=== PATIENT | male | born 1995 | race African-American/Black ===

== ENCOUNTER 2019-04-08 19:38 | Emergency (ER) | payer SELFPAY ==
--- NOTE | 2019-04-08 19:47 | PDOC ---
Rapid Medical Evaluation Chief Complaint: Pain, Acute Time Seen by Provider: 04/08/19 19:44 Medical Evaluation: Allergies Allergy/AdvReac Type Severity Reaction Status Date / Time No Known Allergies Allergy Verified 06/25/13 12:55 04/08/19 19:44 c/o left knee pain c/o knee popped out while playing basket ball 6 days ago now with pain to the Left knee. No pmhx PE: patient alert ox3. able to extent leg. + weight bearing A: left knee pain P; xray patient to the ER for further management of care/ Discharge Disposition - Diagnosis Left knee pain Qualifiers: Chronicity: acute Qualified Code(s): M25.562 - Pain in left knee - Referrals - Patient Instructions - Post Discharge Activity
[2019-04-08 19:58] VITALS: BP 125/80; PULSE 87; TEMP 98.2; BMI 33.2
--- NOTE | 2019-04-08 20:10 | PDOC ---
History of Present Illness - General Chief Complaint: Pain, Acute Stated Complaint: LT KNEE PAIN Time Seen by Provider: 04/08/19 19:44 History Source: Patient - History of Present Illness Initial Comments: 04/08/19 21:05 Chief complaint: Knee injury Patient 24-year-old male his left knee 6 days ago, felt it pop out and pop back in. Patient has been walking on the knee but he has pain and swelling. GENERAL/CONSTITUTIONAL: No fever, weakness. dizziness HEAD, EYES, EARS, NOSE AND THROAT: No change in vision. No ear pain or discharge. No sore throat. CARDIOVASCULAR: No chest pain RESPIRATORY: No shortness of breath or cough GASTROINTESTINAL: No pain, nausea, vomiting, diarrhea or constipation GENITOURINARY: No dysuria MUSCULOSKELETAL: No neck or back pain, + left knee SKIN: No rash NEUROLOGIC: No headache, vertigo, loss of consciousness, or loss of sensation. GENERAL: The patient is awake, alert, and fully oriented, in no acute distress. HEAD: Normal with no signs of trauma. EYES: Pupils equal, round and reactive to light, sclera anicteric, conjunctiva clear. ENT: pharynx: no erythema, no exudate, uvula midline NECK: supple CHEST: clear, nontender, rr ABD: soft, nontender BACK: no tenderness or signs of injury EXTREMITIES: Left lower extremity with some swelling to the knee, some tenderness specially on the medial aspect, able to extend although not fully, no other injuries, neurovascular intact. No deformity. Rest of extremities, normal range of motion, no edema. NEUROLOGICAL: Normal speech, normal gait. SKIN: Warm, Dry Past History - Past Medical History Allergies/Adverse Reactions: Allergies Allergy/AdvReac Type Severity Reaction Status Date / Time No Known Allergies Allergy Verified 04/08/19 19:45 Home Medications: Ambulatory Orders No Home Medications 0 dose .ROUTE UTDICT 06/25/13 Asthma: Yes COPD: No - Immunization History Immunization Up to Date: Yes - Suicide/Smoking/Psychosocial Hx Smoking Status: No Smoking History: Never smoked Number of Cigarettes Smoked Daily: 0 Information on smoking cessation initiated: No Hx Alcohol Use: No Drug/Substance Use Hx: No Substance Use Type: None *Physical Exam - Vital Signs Last Vital Signs Temp Pulse Resp BP Pulse Ox 98.2 F 87 17 125/80 99 04/08/19 19:45 04/08/19 19:45 04/08/19 19:45 04/08/19 19:45 04/08/19 19:45 Medical Decision Making - Medical Decision Making 04/08/19 21:09 24-year-old male who injured left knee 6 days ago, found to have a patella fracture, likely has a quadriceps tear if not full, partial. Patient put a knee brace, put on crutches, nonweightbearing. Discussed with Dr. Bills. Patient will follow-up in their office Discussed issues, findings, results, applicable medications and treatments and follow-up. All these were understood and all questions were answered *DC/Admit/Observation/Transfer Diagnosis at time of Disposition: Patella fracture Qualifiers: Encounter type: initial encounter Fracture type: closed Fracture morphology: unspecified fracture morphology Fracture alignment: displaced Laterality: unspecified laterality Qualified Code(s): S82.009A - Unspecified fracture of unspecified patella, initial encounter for closed fracture - Discharge Dispostion Disposition: HOME Condition at time of disposition: Stable Decision to Admit order: No - Referrals Referrals: Martha Olivier MD [Primary Care Provider] - Dameon Costa MD [Staff Physician] - - Patient Instructions Additional Instructions: Elevate, wear splint Use the crutches, do not walk on your leg Call the orthopedist tomorrow - Post Discharge Activity
== END 2019-04-08 20:35 | disposition home or self-care (01) ==
LOC: JERFT 19:38
PROC: 2W3MX3Z Immobilization of Left Lower Extremity using Brace (ICD-10-PCS; principal; 2019-04-08)
DX: S82.092A Other fracture of left patella, initial encounter for closed fracture (principal); X50.1XXA Overexertion from prolonged static or awkward postures, initial encounter; Y93.67 Activity, basketball; Y92.310 Basketball court as the place of occurrence of the external cause; Y99.8 Other external cause status
CPT/HCPCS: 73562-TC-LT-FY; 99282-25

== ENCOUNTER 2019-05-20 06:07 | Day surgery (SDC) | payer OTHER ==
[2019-05-19 12:26] VITALS: BMI 31.8
[2019-05-20] MEDS ORDERED: oxyCODONE HCL 5 MG TABLET PO PRN (07:06)
[2019-05-20] MEDS ORDERED: ONDANSETRON 4 MG/2 ML VIAL IVPUSH PRN (07:06)
[2019-05-20] MEDS ORDERED: LACTATED RINGERS SOLUTION 1,000 ML IV SCH (07:15)
--- NOTE | 2019-05-20 07:25 | OP ---
Operative Note - Note: Operative Date: 05/20/19 Pre-Operative Diagnosis: Left MPFL tear and osteochondral fracture Operation: Osteochondral fracture repair and MPFL reconstruction Post-Operative Diagnosis: Same as Pre-op Surgeon: Cristhian Newton Rural Sociologist: Lupe Sorenson Anesthesia: General Operative Report Dictated: Yes
[2019-05-20] MEDS ORDERED: DEXAMETHASONE SOD PHOSPHATE/PF 10 MG/ML SDV ONE (08:39)
[2019-05-20] MEDS ORDERED: MIDAZOLAM HCL 2 MG/2 ML SINGLE DOSE VIAL ONE ×5 (08:40→12:17)
[2019-05-20] MEDS ORDERED: ROPIVACAINE HCL 0.5% 30ML VIAL ONE (08:40)
[2019-05-20] MEDS ORDERED: BUPIVACAINE HCL/PF 0.5% (5MG/ML) 10 ML VIAL ONE (08:58)
[2019-05-20] MEDS ORDERED: ROCURONIUM BROMIDE 50 MG/5 ML SYRINGE ONE (09:26)
[2019-05-20] MEDS ORDERED: PROPOFOL 20 ML ONE ×2 (09:26)
[2019-05-20] MEDS ORDERED: ceFAZolin SODIUM 1 GM VIAL ONE ×2 (09:36→13:21)
[2019-05-20] MEDS ORDERED: VANCOMYCIN 1,000 MG VIAL (RESTRICTED TO ID ONLY) ONE (09:49)
[2019-05-20] MEDS ORDERED: VANCOMYCIN 1,000 MG VIAL (RESTRICTED TO ID ONLY) IVPB ONE (11:30)
[2019-05-20] MEDS ORDERED: ACETAMINOPHEN 1000 MG/100 ML VIAL (NON FORMULARY) IVPB ONE (13:00)
[2019-05-20] MEDS ORDERED: ACETAMINOPHEN INJECTION 100 ML IVPB ONE (13:40)
--- NOTE | 2019-05-20 17:56 | OP ---
DATE OF OPERATION: 05/20/2019 PREOPERATIVE DIAGNOSIS: Left patellofemoral instability, loose body x2. POSTOPERATIVE DIAGNOSIS: Left patellofemoral instability, loose body x2. PROCEDURE: Left knee arthroscopy with excision of loose bodies x2, microfracture of the patella, and medial patellofemoral ligament reconstruction. IMPLANTS: [employer] Regenesorb 7 x 20 interference screw. ANESTHESIA: Spinal plus regional. POSTOPERATIVE CONDITION: Stable. COMPLICATIONS: None. INDICATION: This is a pleasant young gentleman who suffered an injury to his knee playing sports . He was found to have an episode of patellar instability along with 2 large osteochondral injuries. Given these findings, he was indicated for operative care. Treatment options including nonoperative care was reviewed which would involve persistent loose bodies and perhaps recurrent instability. Operative care recommended, given the loose bodies are present and potentially could be repaired. I reviewed surgical risks with him in detail including bleeding, infection, neurovascular injury, need for further surgery, postoperative pain and stiffness, failure of osteochondral fragments which were repaired to heal, development of posttraumatic arthrosis, persistent knee instability. We reviewed medical risks such as heart attack, stroke, DVT, PE, and . I reviewed the postoperative rehabilitation protocol. I addressed all the patient's and his mother's questions and concerns. He voiced understanding and elected to proceed. DESCRIPTION OF PROCEDURE: The patient was brought to the operating room after the administration of regional block in the preoperative holding area. He was then administered spinal anesthetic. He was then placed supine on the operating room table. Preoperative examination of the left knee demonstrated small effusion, full range of motion, no collateral or cruciate instability. There was 3 quadrant lateral patellar glide. The contralateral demonstrated 1-1/2 quadrant lateral glide. No medial instability to the patella noted. On flexion, he was noted to have a mild J sign which is symmetric on both sides. The patient was then prepped and draped in the usual sterile fashion. A preoperative dose of antibiotics is given and the usual timeout procedure was performed. Initially, fluoroscopy was performed. The portals were marked out on the skin. The lateral portal was established using an 11 blade. The arthroscope was passed into the joint. Examination of the patellofemoral joint demonstrated a significant area of cartilage loss in the inferomedial portion of the patella. There was fibroid cartilage filling in the area. The trochlea in this area appeared unremarkable. The arthroscope was then passed down into the femoral notch. ACL and PCL were visualized to be intact. Medial side of the joint was visualized, including the medial femoral condyle, again passing the knee from flexion to extension and back to ensure no chondral injuries here. None were seen. The arthroscope was now passed into the medial portion of the joint and meniscus was visualized and seemed to be intact. No tibial articular lesions were noted. The arthroscope was now passed into the lateral portion. The medial portal was established while examining the medial compartment under spinal needle localization. The lateral compartment was now examined. On the lateral aspect of the trochlea, there was a sheer injury to the lateral cartilage. However, this appeared gradual, and no focal defects are noted. The arthroscope was passed down into the lateral compartment and here, no additional injury was noted on the plateau or in the lateral meniscus. Passing the arthroscope into the lateral gutter demonstrated a very large disk body. This was left for now. The arthroscope was now passed just medial to the PCL into the posterior aspect of the knee. Here, the posterior loose body was visualized. After visualizing it, a posterior medial portal was established under spinal needle localization. A kristyn and spread technique was employed to avoid any injury to the soft tissues. After spreading down to the capsule, the clamp was passed into the joint and spread. The grasper was now passed in, and the fragment was manipulated. It was found to be only cartilaginous with no bony back. We therefore decided that it was not repairable. The shaver was passed in the joint, and the loose body was excised. The loose body size was approximately 1 x 1 cm. The large patellar lesion was felt to be the most likely donor site with the fragments in the lateral gutter. Seeing the size of the fragment present, it was felt an arthroscopic repair would not be adequate. The open technique was employed. A midline incision was planned out over the patella. This was carried down through skin to subcutaneous tissue. Blunt spreading was carried down to the fascial layer, which was then split in line with the wound. After reflecting the fascia and bursa back medially and laterally, dissection was carried out along the medial aspect of the patella, as this was the more damaged portion and would need better visualization for repair. A medial arthrotomy was now made, maintaining care to leave a cuff of tissue next to the patella for the repair. Care was also taken not to punch through the capsule to avoid any damage to the articular surface. The arthrotomy was extended the entire length of the patella and then just proximal and distal into the quadriceps. The defect was now directly visualized. Utilizing a finger sweep, the loose body was excised. Loose body was approximately 2.5 cm round. There was diffuse both bony callus and fibrocartilage which had formed around the piece. It was debrided down to what was felt to be its original borders. After sizing the piece up to the patella, it was found the patella had healed in significantly as well. Given the gross mismatch between the defect and the piece, it was felt that a repair would potentially provide more damage than allowing the healing to proceed on its own. In order to stimulate healing in the area where the defect was, multiple 0.062 K-wire passes are made to allow for filling in of fibrocartilage. Following this, the knee was once again inspected arthroscopically to insure there are no other donor sites. No other areas were identified. The arthroscope was again removed. Attention was now turned to the medial portion of the knee. Medial epicondyle was palpated, and the incision was marked out just proximal to this. This incision was carried down through skin and subcutaneous tissue. Blunt spreading was used expose the medial fascia, which was then split in line with its fibers. The distal adductor tendon was now identified as well as the medial epicondyle. Just distal to the tendon and proximal to the epicondyle, guidepin was inserted. Fluoroscopy was used to confirm guidepin placement which was felt to be just too anterior so it was moved just posterior. The guidepin was then advanced, aiming proximally and anteriorly to both avoid the joint and the neurovascular structures more posteriorly. The pin was then overreamed to a depth of 30 mm with a size 8, which was based on the allograft, which was currently whipstitched on the back table. Whipstitching was only performed at one end. The interference screw was now inserted, getting excellent purchase on the tendon. The path for the tendon was now dissected. A plane between the capsule and the VMO was identified, and a curved clamp was then slid down from the anterior incision to the posterior medial incision. The graft was passed through this plane . The graft was then passed through a small slit in the VMO which had been detached during the arthrotomy. The layer between the rectus and the vastus intermedius was now developed, and the tendon was slipped through this, and then back over itself. This allowed for provisional tensioning. The capsule and retinaculum were now repaired using number 1 Vicryl. The knee was passed through a range of motion, and the tensioning was used to ensure that no overtightening was causing medial tracking of the patella. Patella was also examined on contralateral side and felt to of the same stability. Locking the tension, a suture tape was used to place multiple [id number] sutures through the tendon, sewing it back to itself and securing it in place at the junction of the quadriceps tendon and VMO. Additional Vicryl sutures were used to close the remainder of the arthrotomy in that area . The knee was now passed again through a range of motion. Patellar tracking was satisfactory. No excessive medial tightness was noted. Lateral glide was now similar to the contralateral. Fascia was then repaired using 0 Vicryl. The subcutaneous tissue was repaired using 2-0 Vicryl. The skin was closed using 3-0 nylon. Sterile dressings placed. The patient placed in knee immobilizer. Transferred to recovery room in stable condition. Viki [id number]
[2019-05-20 18:40] VITALS: TEMP 97.9
[2019-05-20 19:45] VITALS: BP 130/83; PULSE 60
--- NOTE | 2019-05-26 16:07 | PATH ---
Surgical Pathology Report Patient Name: DINESH NIEVES Med. Rec. #: [id number] /Age/Gender: 1995 (Age: 24) / M Account: [id number] Location: [facility] AMBULATORY Taken: 05/20/2019 Received: 05/20/2019 Reported: 05/26/2019 Physicians: Cristhian Newton M.D. Specimen(s) Received LOOSE BODY LEFT KNEE Clinical History Left knee patellar dislocation Final Diagnosis LOOSE BODY, LEFT KNEE, EXCISION: LOOSE BODY. Electronically Signed Erika Powell M.D. Gross Description Received in formalin, labeled, "loose body, left knee" is a 3.2 x 2.5 x 0.7 cm ovoid portion of garcia-white bony and cartilaginous tissue. Automatic [employer] Operator tissue is submitted in one cassette after decalcification.
== END 2019-05-20 19:40 | disposition home or self-care (01) ==
LOC: FASU 06:07
PROVIDERS: ATTEND Orthopaedic Surgery Sports Medicine
PROC: 0SQD4ZZ Repair Left Knee Joint, Percutaneous Endoscopic Approach (ICD-10-PCS; 2019-05-20)
PROC: 0SQD0ZZ Repair Left Knee Joint, Open Approach (ICD-10-PCS; 2019-05-20)
PROC: 0SCD4ZZ Extirpation of Matter from Left Knee Joint, Percutaneous Endoscopic Approach (ICD-10-PCS; principal; 2019-05-20 09:49)
DX: M22.2X1 Patellofemoral disorders, right knee (principal); M23.42 Loose body in knee, left knee; Z53.33 Arthroscopic surgical procedure converted to open procedure
CPT/HCPCS: 27428; 29874; C1713; 73560-TC-LT-FY; 88304-TC; 94760; J0131